=== PATIENT | male | born 1935 | race Two or more races ===

== ENCOUNTER 2022-09-24 16:05 | Inpatient (IN) | payer MEDICARE, OTHER ==
[~2022-09-24] VITALS: Ht 165.1 cm; Wt 56.7 kg
--- NOTE | 2022-09-24 16:25 | NUR ---
LEANA Ambulife from [facility] "feel SON not getting enough air Sats 90%Ra- O2 applied"
--- NOTE | 2022-09-24 16:35 | NUR ---
established iv line 20 g at right ac , infusing well
--- NOTE | 2022-09-24 16:35 | NUR ---
blood sample obtained
--- NOTE | 2022-09-24 16:35 | NUR ---
on 3 L/min o2 , satting 97%
[2022-09-24 16:44] LABS: BASOPHILS % (AUTO) 0.4 % (0.0-2.0); EOSINOPHILS % (AUTO) 2.2 % (0.0-6.0); HEMATOCRIT 45 % (39-51); HEMOGLOBIN 14.7 g/dL (13.5-17.5); LYMPHOCYTES # (AUTO) 1.4 K/uL (0.8-4.8); MEAN CORPUSCULAR HGB CONC 33 g/dl (31.0-36.0); MEAN CORPUSCULAR VOLUME 87 fL (80-96); MONOCYTES # (AUTO) 0.5 K/uL (0.1-1.30); MONOCYTES % (AUTO) 6.7 % (2.0-12.0); NEUTROPHILS # (AUTO) 5.5 K/uL (1.8-8.9); NEUTROPHILS % (AUTO) 72.7 % (43.0-81.0); PLATELET COUNT (AUTO) 219 K/uL (150-450); RED BLOOD CELL COUNT(AUTO) 5.15 MIL/uL (4.5-6.0); WHITE BLOOD COUNT (AUTO) 7.5 K/uL (4.3-11.0)
[2022-09-24 17:04] LABS: CALCIUM, SERUM 9.2 mg/dL (8.5-10.1); CARBON DIOXIDE 31 mmol/L (21-32); CHLORIDE 102 mmol/L (98-107); CREATININE 0.7 mg/dL (0.6-1.3); GLUCOSE 142 mg/dL (74-106); POTASSIUM 4.1 mmol/L (3.5-5.1); SODIUM SERUM 138 mmol/L (136-145); UREA NITROGEN, BLOOD 19 mg/dL (7-18)
[2022-09-24 17:16] LABS: ALANINE AMINOTRANSFERASE 17 U/L (12-78); ALBUMIN 3.8 g/dL (3.4-5.0); ALKALINE PHOSPHATASE 71 U/L (46-116); ASPARTATE AMINOTRANSFERASE 16 U/L (15-37); BILIRUBIN,DIRECT 0.1 mg/dL (0.0-0.2); BILIRUBIN,TOTAL 0.4 mg/dL (0.2-1.0)
[2022-09-24] MEDS ORDERED: BRIM5DRO3 EACHEYE (17:27)
[2022-09-24] MEDS ORDERED: MECL-159 PO (17:27)
[2022-09-24] MEDS ORDERED: SENN-18 PO (17:27)
[2022-09-24] MEDS ORDERED: FINA5TAB11 PO (17:27)
[2022-09-24] MEDS ORDERED: GUAI100S11 PO (17:27)
[2022-09-24] MEDS ORDERED: IPRA3AMP23 IH (17:27)
[2022-09-24] MEDS ORDERED: ROSU20TA2 PO (17:27)
[2022-09-24] MEDS ORDERED: INSU100V27 SQ (17:27)
[2022-09-24] MEDS ORDERED: CHOL400C8 PO (17:27)
[2022-09-24] MEDS ORDERED: GABA-532 PO (17:27)
[2022-09-24] MEDS ORDERED: LACT10SO3 PO (17:27)
[2022-09-24] MEDS ORDERED: POLY17PO4 PO (17:27)
[2022-09-24] MEDS ORDERED: METO25TA20 PO (17:27)
[2022-09-24] MEDS ORDERED: ACET-868 PO (17:27)
[2022-09-24] MEDS ORDERED: EMPA25TA PO (17:27)
[2022-09-24] MEDS ORDERED: METF-440 PO (17:27)
[2022-09-24] MEDS ORDERED: TAMS-12 PO (17:27)
[2022-09-24] MEDS ORDERED: PANT40TA2 PO (17:27)
[2022-09-24] MEDS ORDERED: DOCU-141 PO (17:27)
[2022-09-24] MEDS ORDERED: APIX2.5T PO (17:27)
--- NOTE | 2022-09-24 17:35 | NUR ---
covid swab taken
--- NOTE | 2022-09-24 19:12 | NUR ---
CALLED [facility] FOR ADMISSION
--- NOTE | 2022-09-24 21:25 | NUR ---
REPORT GIVEN TO ALIDA FOR ERICKSON
--- NOTE | 2022-09-24 21:56 | NUR ---
TRANSFERRED TO ROOM VIA ACLS PROTOCOL
[2022-09-24 22:00] VITALS: BP 112/44
[2022-09-24] MEDS ORDERED: Z GUARD REMEDY 4 OZ OINT TP PRN (23:30)
[2022-09-24] MEDS ORDERED: IV NS 0.9% 1,000 ML IV PRN (23:30)
[2022-09-24] MEDS ORDERED: ALBUTEROL FS 2.5 MG/0.5 ML VIAL.NEB NEB PRN (23:30)
[2022-09-24] MEDS ORDERED: ACETAMINOPHEN 325 MG TABLET PO PRN (23:30)
[2022-09-24] MEDS ORDERED: MAGNESIUM HYDROXIDE 30 ML UDC PO PRN (23:30)
[2022-09-24] MEDS ORDERED: DEXTROSE 50%-WATER 50 ML DISP.SYRIN IV PRN (23:30)
[2022-09-24] MEDS ORDERED: MAG HYDROX/AL HYDROX/SIMETH 30 ML UDC PO PRN (23:30)
[2022-09-24] MEDS ORDERED: *INSULIN REGULAR(HUMULIN R)HUM 100 UNIT/ML VIAL SQ PRN (23:30)
[2022-09-24] MEDS ORDERED: ONDANSETRON HCL/PF 4 MG/2 ML VIAL IVP PRN (23:30)
--- NOTE | 2022-09-24 23:30 | NUR ---
DRAFTER MARINESIDEHAND NOTE ADMITTED THIS 87 YO MALE PATIENT FROM ER VIA GURNEY. PATIENT IS AWAKE, ALERT AND ORIENTED X 1-2. WITH PERIODS OF CONFUSION. PALAUAN SPEAKING. USED Ezetap MACHINE FOR TRANSLATION. INITIAL VS TAKEN FOLLOWS: T 97.6, WY 74, RR 20, O2 SAT 93%, BP 112/44 MM HG. ON ROOM AIR; TOLERATING WELL. NOT IN ANY FORM OF RESPIRATORY OR CARDIAC DISTRESS NOTED AT THIS TIME. NO C/O PAIN OR DISCOMFORT. WHOLE BODY AND SKIN ASSESSMENT DONE: SKIN WARM TO TOUCH AND INTACT. WITH IV ACCESS ON RIGHT FOREARN 20g; PATENT, INTACT AND SALINE LOCKED. ON TELE METRY MONITORING; REFUSED TO BE ATTACHED ON TELE BOX. OLIVERIO MIRANDA RN MADE AWARE. ORIENTED TO STAFF, ROOM AND UNIT. SAFETY MEASURES IMPLEMENTED: CALL LIGHT AND TABLE WITHIN REACH, SIDE RAILS UP X 2, BED ALARM ON, BED IN LOWEST LOCKED POSITION. WILL CONTINUE TO MONITOR.
[2022-09-25] MEDS ORDERED: SENNOSIDES 8.6 MG TABLET PO PRN
[2022-09-25] MEDS ORDERED: ENOXAPARIN SODIUM 40 MG/0.4 ML DISP.SYRIN SQ SCH
[2022-09-25] MEDS ORDERED: ACETAMINOPHEN 325 MG TABLET PO PRN
[2022-09-25] MEDS ORDERED: LACTULOSE 10 G/15 ML UDC (PYXIS) PO PRN (00:30)
[2022-09-25] MEDS: methylPREDNISolone SOD SUCC 40 MG/ML VIAL IV SCH ×4 (00:59→21:21)
--- NOTE | 2022-09-25 01:08 | NUR ---
RN NOTE SOLU MEDROL 40 MG IV HELD; PATIENT REFUSED TO RECEIVE MEDICATION. EXPLAINED RISKS AND BENEFITS OF FOLLOWING REGIMEN; STILL PATIENT REFUSED TO RECEIVE IT.
--- NOTE | 2022-09-25 01:08 | NUR ---
RN NOTE IVF NS 1L @ 75 CC/HR AND LOVENOX 40 MG SQ HELD; PATIENT REFUSED TO RECEIVE MEDICATIONS. EXPLAINED RISKS AND BENEFITS OF FOLLOWING MEDICAL REGIMEN; STILL PATIENT REFUSED TO RECEIVE IT.
--- NOTE | 2022-09-25 07:26 | NUR ---
OIL RAG WASHER OPENING NOTES RECEIVED PT AWAKE IN BED IN NO ACUTE SIGNS OF DISTRESS. A/O X2-3. MALAGASY SPEAKING, DENIES PAIN OR ANY DISCOMFORTS AT THIS TIME. ON ROOM AIR, TOLERATING WELL, BREATHING EVEN AND UNLABORED. PT REFUSED TO PUT ON EXTERNAL OFFICE ASSISTANT DESPITE EXPLAINING RISKS AND BENEFITS. IV ACCESS ON RFA #20G INTACT, PATENT AND FLUSHES WELL, PT REFUSED IVF. COMPLIANCE PROFESSIONAL CAME TO DRAW AM LABS, BUT PT REFUSED. CALLED PT SON WEN TO INFORMED HIM THAT PT REFUSING BLOOD DRAW, HE STATED THAT HE WILL COME AT 1100 AND NOT TO DO ANYTHING UNTIL HE COMES. SAFETY MEASURES IN PLACE: BED IN LOWEST LOCKED POSITION, HOB ELEVATED, SIDE RAILS UP X2, CALL LIGHT AND TRAY TABLE WITHIN REACH. WILL CONTINUE TO MONITOR PT ACCORDINGLY.
[2022-09-25] MEDS: PANTOPRAZOLE 40 MG TABLET.DR PO SCH (07:28)
[2022-09-25] MEDS: BLOOD SUGAR DIAGNOSTIC 1 EACH STRIP VI SCH ×4 (07:30→21:21)
--- NOTE | 2022-09-25 07:30 | NUR ---
RN NOTE PATIENT REFUSED AM LABS TO BE TAKEN AND REFUSED TO HAVE BLOOD SUGAR CHECKED.
--- NOTE | 2022-09-25 07:40 | NUR ---
RN CLOSING NOTE PATIENT IN BED; AWAKE, A/O X 1. STABLE ON ROOM AIR. IN NO ACUTE DISTRESS. NO S/S OF PAIN OR DISCOMFORT AT THIS TIME. ALL NEEDS ATTENDED. KEPT COMFORTABLE IN BED. SAFETY MEASURES IN PLACE: BED ALARM ON, CALL LIGHT AND TABLE WITHIN REACH, SIDE RAILS UP X 2, BED IN LOWEST LOCKED POSITION. ENDORSED TO MORNING SHIFT FOR ERICKSON.
[2022-09-25 08:00] VITALS: BP 115/78
[2022-09-25] MEDS: DOCUSATE SODIUM 100 MG CAPSULE PO SCH ×2 (09:00→16:52)
[2022-09-25] MEDS: POLYETHYLENE GLYCOL 3350 17 GM POWD.PACK PO SCH (09:00)
[2022-09-25] MEDS: GABAPENTIN 300 MG CAPSULE PO SCH ×2 (09:46→16:53)
[2022-09-25] MEDS: METOPROLOL TARTRATE 50 MG TABLET PO SCH (09:47)
[2022-09-25] MEDS: FINASTERIDE (5 MG) 5 MG TABLET PO SCH (09:47)
[2022-09-25] MEDS: APIXABAN 2.5 MG TABLET PO SCH ×2 (09:48→21:21)
[2022-09-25 10:52] LABS: BASOPHILS % (AUTO) 0.5 % (0.0-2.0); EOSINOPHILS % (AUTO) 4.3 % (0.0-6.0); HEMATOCRIT 44 % (39-51); HEMOGLOBIN 14.2 g/dL (13.5-17.5); LYMPHOCYTES # (AUTO) 1.1 K/uL (0.8-4.8); LYMPHOCYTES % (AUTO) 15.9 % (20.0-44.0); MEAN CORPUSCULAR HGB CONC 33 g/dl (31.0-36.0); MEAN CORPUSCULAR VOLUME 88 fL (80-96); MONOCYTES # (AUTO) 0.5 K/uL (0.1-1.30); MONOCYTES % (AUTO) 6.8 % (2.0-12.0); NEUTROPHILS # (AUTO) 5.1 K/uL (1.8-8.9); NEUTROPHILS % (AUTO) 72.5 % (43.0-81.0); PLATELET COUNT (AUTO) 208 K/uL (150-450); RED BLOOD CELL COUNT(AUTO) 4.97 MIL/uL (4.5-6.0)
[2022-09-25 11:15] LABS: CALCIUM, SERUM 8.8 mg/dL (8.5-10.1); CREATININE 0.8 mg/dL (0.6-1.3); MAGNESIUM 1.8 mg/dL (1.8-2.4); PHOSPHORUS 3.4 mg/dL (2.5-4.9); POTASSIUM 3.7 mmol/L (3.5-5.1)
[2022-09-25 12:00] VITALS: BP 119/55
[2022-09-25] MEDS: INSULIN REGULAR, HUMAN 100 UNIT/ML 3 ML VIAL SQ PRN ×2 (12:04→17:22)
--- NOTE | 2022-09-25 12:50 | NUR ---
RN NOTES PATIENT PICKED UP VIA WHEELCHAIR BY INGE TRAN FOR CT OF HEAD WITHOUT CONTRAST.
[2022-09-25] MEDS: ALBUTEROL FS 2.5 MG/0.5 ML VIAL.NEB NEB SCH ×2 (13:30→20:24)
[2022-09-25] MEDS: IPRATROPIUM NEB FS 0.5 MG/2.5 ML AMPUL.NEB NEB SCH ×2 (13:30→20:24)
[2022-09-25 16:00] VITALS: BP 122/60
--- NOTE | 2022-09-25 16:17 | NUR ---
RN NOTES PATIENT REFUSED TO DO A VENOUS DUPLEX OF BLE AND HEART ECHO.
--- NOTE | 2022-09-25 17:10 | NUR ---
UNABLE TO PERFORM AN ECHOCARDIOGRAM AND LOWER EXTREMITY VENOUS EXAM PATIENT IS UNCOOPERATIVE AND DOES NOT WANT TO LIE DOWN IN BED. RNs KELLY AND LEONARDO INFORMED AND UTILITY OPERATOR NINO.
--- NOTE | 2022-09-25 18:46 | NUR ---
MEDICAL LANGUAGE SPECIALIST CLOSING NOTES PT IN BED AWAKE, A/O X2. RWANDAN SPEAKING ONLY. CONFUSED/FORGETFUL INTERMITTENTLY, REORIENTED AND REDIRECTED NEEDED. ON ROOM AIR, TOLERATING WELL, NO SOB NOTED DURING SHIFT. PT STILL REFUSING TELE-MONITOR TO BE PLACED. IV ACCESS RFA #20G INTACT, PATENT AND FLUSHES WELL, PT ALSO REFUSED IVF. ALL NEEDS AND CARE PROVIDED WELL. WELL. SAFETY MEASURES KEPT IN PLACE: BED IN LOWEST LOCKED POSITION, SIDE-RAILS UP X2, CALL LIGHT AND TRAY TABLE WITHIN REACH OF PT. WILL ENDORSE ERICKSON TO BELLSTAND ATTENDANT NURSE.
--- NOTE | 2022-09-25 19:31 | NUR ---
ROVING CAN TENDER OPENING NOTES PT IN BED ASLEEP IN BED, A/O X2. BOTSWANAN SPEAKING ONLY. CONFUSED/FORGETFUL INTERMITTENTLY, REORIENTED AND REDIRECTED NEEDED. ON ROOM AIR, TOLERATING WELL, NO SOB NOTED. PT STILL REFUSING TELE-MONITOR TO BE PLACED. IV ACCESS RFA #20G INTACT, PATENT AND FLUSHES WELL, PT ALSO REFUSED IVF. WELL. SAFETY MEASURES KEPT IN PLACE: BED IN LOWEST LOCKED POSITION, SIDE-RAILS UP X2, CALL LIGHT AND TRAY TABLE WITHIN REACH OF PT.
[2022-09-25 20:00] VITALS: BP 118/61
[2022-09-25] MEDS: TAMSULOSIN 0.4 MG CAP.SR.24H PO SCH (21:21)
[2022-09-26] VITALS: BP 128/65
[2022-09-26] MEDS: IPRATROPIUM NEB FS 0.5 MG/2.5 ML AMPUL.NEB NEB SCH ×4 (01:30→19:30)
[2022-09-26] MEDS: ALBUTEROL FS 2.5 MG/0.5 ML VIAL.NEB NEB SCH ×4 (01:30→19:30)
[2022-09-26] MEDS: methylPREDNISolone SOD SUCC 40 MG/ML VIAL IV SCH ×3 (04:17→21:08)
--- NOTE | 2022-09-26 04:45 | NUR ---
RN NOTE WHILE STAFF WAS TRYING TO CHECK VITAL SIGNS PT BECAME VERY AGITATED AND AGGRESSIVE SHAKING FIST IN STAFFS FACE AND STARTED YELLING. I WAS INFORMED AND WHEN TO THE ROOM TO ASSES THE SITUATION PT CONTINUED TO YELL AT STAFF AND SHAKE FIST AT STAFF. TRIED TO GIVE PT SPACE AND DEESCALATE SITUATION TOOK A FEW STEPS BACK PT WAS VERY AGGRESSIVE. PT GOT UP OFF THE BED AND APPROACHED ME YELLING AND PROCEEDED TO PULL BACK HIS FIST AND SWING AT MY FACE. PT LOST BALANCE AND FELL BACK ON THE FLOOR. PT WAS NOT SEEN TO HAVE HIS THIS HEAD ON THE FLOOR. ATTEMPTED TO HELP PT HE STARTED KICKING AND SCREAMING AT ANY STAFF MEMBER WHO APPROACHED HIM. RESPIRATORY THERAPIST AND MOLDING MACHINE OPERATOR HELPER PRESENT DURING INCIDENT. SECURITY WAS CALLED AND ALGERIAN SPEAKING NURSE WELL TO TRANSLATE. PT UNABLE TO ANSWER QUESTIONS OR BE REORIENTATED JUST KEEPS SAYING " THEY ALL ARE TRYING TO KILL ME GET OUT" PT VERY CONFUSED AND DISORIENTED UNABLE TO ANSWER QUESTIONS.SECURITY WAS ABLE TO CONVINCE PT TO ACCEPT ONE PERSON ASSIST ON TO THE BED. ONCE ON BED PT STARTED KICKING AND TRYING TO SWING AT STAFF AGAIN PT WAS PLACED ON BILATERAL SOFT WRIST RESTRAINTS FOR SAFETY. BODY ASSESSMENT WAS DONE PT DID NOT GRIMACE OR SHOW ANY S/S OF PAIN AT THIS TIME NO BRUISING, SWELLING OR OPEN SKIN NOTED.VITAL SIGNS TAKEN AND FOLLOWS SBP 128/86 HR 98 O2 SAT 96% PT WAS ASSESSED BY RESPIRATORY THERAPIST WELL. HALL MONITOR BRITT INFORMED OF INCIDENT AWAITING ANY FURTHER ORDERS.CHARGE NURSE AWARE. NURSING COVERING MACHINE OPERATOR HELPER AWARE. BED ALARM ON BILATERAL SIDE RAILS UP X2 FOR SAFETY HOB ELEVATED FOR ASPIRATION PRECAUTIONS. ALL NEEDS MET AT THIS TIME.
--- NOTE | 2022-09-26 06:12 | NUR ---
RN NOTE RECEIVED NEW ORDER FOR CT OF THE HEAD WO CONTRAST.
[2022-09-26] MEDS: BLOOD SUGAR DIAGNOSTIC 1 EACH STRIP VI SCH ×4 (06:45→21:43)
[2022-09-26] MEDS: INSULIN REGULAR, HUMAN 100 UNIT/ML 3 ML VIAL SQ PRN ×4 (06:49→21:58)
[2022-09-26 07:00] VITALS: BP_SYST 110; BP_SYST 53; BP_DIAS 110; BP_DIAS 53
--- NOTE | 2022-09-26 07:28 | NUR ---
TEST DRIVER OPENING NOTE RECEIVED PT AWAKE AND RESTING IN BED. PT IS A/O X2, CONFUSED. REORIENTED PT NEEDED. PT IS ON ROOM AIR, TOLERATING WELL. NO SOB NOTED. NOT IN ANY SIGN OF RESPIRATORY DISTRESS. PT REFUSED THE CARDIAC TELE MONITOR, EXPLAINED RISK AND BENEFITS, PT GOT AGITATED AND REFUSED. NO C/O CARDIAC DISTRESS NOTED VOICED OUT AT THIS TIME. IV ACCESS ON RFA G#20 WITH NS ORDER BUT PT REFUSED IV FLUIDS DESPITE OF EXPLAINING RISK AND BENEFITS. SAFETY MEASURES IN PLACE: BED IN LOWEST AND LOCKED POSITION, SIDE RAILS UP X2, AND CALL LIGHT WITHIN REACH. WILL CONTINUE TO MONITOR PT.
[2022-09-26] MEDS: PANTOPRAZOLE 40 MG TABLET.DR PO SCH (07:30)
--- NOTE | 2022-09-26 07:42 | NUR ---
rn note spoke to son Cristiano regarding pt witnessed fall per son " in the facility they give him something to calm down maybe you can ask the dr for something" suggested son speak to the pt to try to calm him down he said "no , if you cant help his send him back to the facility" informed son day shift nurse would update him with any changes to pt condition.
--- NOTE | 2022-09-26 08:10 | NUR ---
RN NOTE PT REFUSED HIS PROTONIX MEDICATION SCHEDULED AT 0730. EXPLAINED RISK AND BENEFITS, PT STILL REFUSED.
[2022-09-26] MEDS: DOCUSATE SODIUM 100 MG CAPSULE PO SCH ×3 (09:00→17:00)
[2022-09-26] MEDS: METOPROLOL TARTRATE 50 MG TABLET PO SCH (09:00)
[2022-09-26] MEDS: FINASTERIDE (5 MG) 5 MG TABLET PO SCH ×2 (09:00→09:36)
[2022-09-26] MEDS: APIXABAN 2.5 MG TABLET PO SCH ×3 (09:00→21:08)
[2022-09-26] MEDS: GABAPENTIN 300 MG CAPSULE PO SCH ×3 (09:00→17:00)
[2022-09-26] MEDS: POLYETHYLENE GLYCOL 3350 17 GM POWD.PACK PO SCH ×2 (09:00→09:36)
--- NOTE | 2022-09-26 09:42 | NUR ---
RN NOTE PT REFUSED ALL HIS MEDICATIONS SCHEDULED AT 0900. EXPLAINED RISK AND BENEFITS BUT PT STARTED TO GET AGGRESSIVE AND IRRITATED AND STILL REFUSED.
[2022-09-26 13:00] VITALS: BP 116/65
[2022-09-26] MEDS: LORAZEPAM INJ 2 MG/ML VIAL IV PRN (15:32)
--- NOTE | 2022-09-26 15:34 | NUR ---
RN NOTE PT NOTED WITH EPISODES OF AGITATION AND AGGRESSIVENESS TOWARDS STAFF. PT KEPT YELLING AND TRYING TO GET OUT OF BED WHILE BILATERAL SOFT WRIST RESTRAINTS IN PLACE. REMOVED THE SOFT WRIST RESTRAINTS BUT PT WAS STILL COMBATIVE TRIES TO PUNCH THE NURSES. BILATERAL SOFT WRIST RESTRAINTS WAS PLACED BACK ON THE PT AND CALMLY REORIENTED AND REDIRECTED PT BUT STILL INEFFECTIVE. ATIVAN 0.5MG IVP ADMINISTERED ORDERED Q6HR PRN FOR AGITATION. PARTIAL DOSE WASTED AND WAS WITNESSED BY MARGO GERBER. WILL MONITOR AND REASSESS PT.
[2022-09-26 16:47] VITALS: BP 111/52
--- NOTE | 2022-09-26 17:35 | NUR ---
RN NOTE PT REFUSED ALL HIS MEDICATIONS SCHEDULED AT 1700. EXPLAINED RISK AND BENEFITS BUT PT STARTED TO GET AGGRESSIVE AND IRRITATED AND STILL REFUSED.
--- NOTE | 2022-09-26 18:00 | NUR ---
RN NOTE RECEIVED A CALL FROM [facility] AND SPOKE WITH DOL REPORTING CRITICAL DUPLEX RESULT WITH PT POSITIVE DVT ON RIGHT SUPERFICIAL FEMORAL VEIN. CALLED DR. JUANA MCGREGOR AND MADE AWARE OF THE DUPLEX RESULT WITH NO NEW ORDER AT THIS TIME.
--- NOTE | 2022-09-26 19:00 | NUR ---
RN OPENING NOTES PT IS AWAKE, A/O X 2, NEPALESE SPEAKING, CONFUSED. PT ON RA, TOLERATING WELL, BREATHING EVEN AND UNLABORED @ THIS TIME. PT IV ACCESS ON RIGHT FOREARM #20G, INTACT, PATENT AND FLUSHES WELL, WITH NO S/SX OF INFILTRATION @ SITE NOTED. SAFETY MEASURES IN PLACE. BED PLACE IN ITS LOWEST AND LOCKED POSITION, SIDE RAILS UP X 4, BEDSIDE TABLE AND CALL LIGHT IS EASY REACH. BED ALARM IS ON. WILL CONTINUE TO MONITOR PATIENT ACCORDINGLY.
--- NOTE | 2022-09-26 19:34 | NUR ---
PROBATE JUDGE CLOSING NOTE PT AWAKE AND RESTING IN BED. PT IS A/O X2, CONFUSED. REORIENTED PT NEEDED. PT IS ON ROOM AIR, TOLERATING WELL. NO SOB NOTED. NOT IN ANY SIGN OF RESPIRATORY DISTRESS. PT STILL REFUSED THE CARDIAC TELE MONITOR, EXPLAINED RISK AND BENEFITS, PT GOT AGITATED AND REFUSED. NO C/O CARDIAC DISTRESS NOTED VOICED OUT AT THIS TIME. IV ACCESS ON RFA G#20 WITH NS ORDER BUT PT STILL REFUSED IV FLUIDS DESPITE OF EXPLAINING RISK AND BENEFITS. BILATERAL SOFT WRIST RESTRAINTS IN PLACE ORDERED. CIRCULATION IS GOOD WITH NO SKIN IMPAIRMENTS NOTED. ALL NEEDS ATTENDED. KEPT CLEAN AND COMFORTABLE AT ALL TIMES. SAFETY MEASURES IN PLACE: BED IN LOWEST AND LOCKED POSITION, SIDE RAILS UP X2, AND CALL LIGHT WITHIN REACH. ENDORSED TO ORCHARD WORKER NURSE FOR ERICKSON.
[2022-09-26 20:00] VITALS: BP 130/59
[2022-09-26 20:24] VITALS: BP 130/59
[2022-09-26] MEDS: TAMSULOSIN 0.4 MG CAP.SR.24H PO SCH (21:07)
[2022-09-27] MEDS: IPRATROPIUM NEB FS 0.5 MG/2.5 ML AMPUL.NEB NEB SCH ×3 (01:20→13:22)
[2022-09-27] MEDS: ALBUTEROL FS 2.5 MG/0.5 ML VIAL.NEB NEB SCH ×3 (01:20→13:23)
[2022-09-27] MEDS: methylPREDNISolone SOD SUCC 40 MG/ML VIAL IV SCH ×2 (04:22→12:19)
[2022-09-27] MEDS: BLOOD SUGAR DIAGNOSTIC 1 EACH STRIP VI SCH ×2 (06:50→11:41)
[2022-09-27 07:00] VITALS: BP 133/76
--- NOTE | 2022-09-27 07:29 | NUR ---
JUICE WEIGHER OPENING NOTE RECEIVED PT AWAKE AND RESTING IN BED. PT IS A/O X2, CONFUSED. REORIENTED PT NEEDED. PT IS ON ROOM AIR, TOLERATING WELL. NO SOB NOTED. NOT IN ANY SIGN OF RESPIRATORY DISTRESS. PT REFUSED THE CARDIAC TELE MONITOR, EXPLAINED RISK AND BENEFITS, PT STILL REFUSED. NO C/O CARDIAC DISTRESS NOTED VOICED OUT AT THIS TIME. IV ACCESS ON RFA G#20 WITH NS ORDER BUT PT REFUSED IV FLUIDS DESPITE OF EXPLAINING RISK AND BENEFITS. BILATERAL SOFT WRIST RESTRAINTS IN PLACE ORDERED. PT HAS GOOD CIRCULATION WITH NO SKIN IMPAIRMENTS NOTED. SAFETY MEASURES IN PLACE: BED IN LOWEST AND LOCKED POSITION, SIDE RAILS UP X2, BED ALARM ON, AND CALL LIGHT WITHIN REACH. WILL CONTINUE TO MONITOR PT.
--- NOTE | 2022-09-27 07:44 | NUR ---
RN CLOSING NOTES3 PT IS DOZING INTERMITTENTLY IN BED, [place]OREAN SPEAKING. NO S/SX OF RESPIRATORY DISTRESS NOTED. A/O X 2-3. IV SITE ON RFA #20G, INTACT, PATENT AND FLUSHES WELL WITH NO S/SX OF INFILTRATION. KEPT CLEAN, DRY AND COMFORTABLE. MEDICATIONS ADMINISTERED ACCORDINGLY PER MD'S ORDER. SAFETY MEASURES MAINTAINED. BEDS AT ITS LOWEST AND LOCKED POSITION. SIDE RAILS UP X 2. BEDSIDE TABLE AND CALL LIGHT IS EASY REACH, BED ALARM IS ON. WILL ENDORSE TO THE NEXT SHIFT FOR CONTINUITY OF CARE.
[2022-09-27] MEDS: PANTOPRAZOLE 40 MG TABLET.DR PO SCH (08:24)
[2022-09-27] MEDS: GABAPENTIN 300 MG CAPSULE PO SCH (08:25)
[2022-09-27] MEDS: FINASTERIDE (5 MG) 5 MG TABLET PO SCH (08:25)
[2022-09-27] MEDS: DOCUSATE SODIUM 100 MG CAPSULE PO SCH (08:25)
[2022-09-27] MEDS: POLYETHYLENE GLYCOL 3350 17 GM POWD.PACK PO SCH ×2 (08:25→09:00)
[2022-09-27 08:26] VITALS: BP 133/76
[2022-09-27] MEDS: APIXABAN 2.5 MG TABLET PO SCH (08:26)
[2022-09-27] MEDS: METOPROLOL TARTRATE 50 MG TABLET PO SCH (08:26)
--- NOTE | 2022-09-27 09:07 | NUR ---
RN NOTE PT REFUSED HIS MIRALAX MEDICATION SCHEDULED AT 0900. EXPLAINED RISK AND BENEFITS BUT PT STILL REFUSED.
--- NOTE | 2022-09-27 10:00 | NUR ---
RN NOTE CALLED [facility] AT [phone] TO GIVE REPORT IN REGARDS TO THE PT TRANSFERRING BACK TO THEIR FACILITY. CALLED SEVERAL TIMES BUT IT JUST KEPT RINGING AND UNABLE TO REACH THE FACILITY. WILL TRY TO CALL FACILITY AGAIN LATER.
[2022-09-27] MEDS: LORAZEPAM INJ 2 MG/ML VIAL IV PRN (10:42)
--- NOTE | 2022-09-27 10:44 | NUR ---
RN NOTE PT NOTED WITH EPISODES OF AGITATION AND AGGRESSIVENESS TOWARDS STAFF. PT KEPT YELLING AND TRYING TO GET OUT OF BED. PT WAS COMBATIVE WHEN STAFF TRYING TO CALM HIM DOWN. CALMLY REORIENTED AND REDIRECTED PT BUT STILL INEFFECTIVE. ATIVAN 0.5MG IVP ADMINISTERED ORDERED Q6HR PRN FOR AGITATION. PARTIAL DOSE WASTED AND WAS WITNESSED BY MARGO GERBER. WILL MONITOR AND REASSESS PT.
--- NOTE | 2022-09-27 11:00 | NUR ---
RN NOTE CALLED [facility] AT [phone] AGAIN TO GIVE REPORT IN REGARDS TO THE PT TRANSFERRING BACK TO THEIR FACILITY. CALLED SEVERAL TIMES AGAIN BUT IT JUST KEPT RINGING AND UNABLE TO REACH THE FACILITY. WILL TRY TO CALL FACILITY AGAIN LATER.
--- NOTE | 2022-09-27 11:25 | NUR ---
RN NOTE PT WAS SEEN BY DR. JUANA MCGREGOR WITH ORDERS TO DC BILATERAL SOFT WRIST RESTRAINTS AND MONITOR THE PT'S BEHAVIOR AT THIS TIME. ORDERS CARRIED OUT. Addendum: 09/27/22 at 1558 by EMILIA MORENO RN ADDENDUM BILATERAL SOFT WRIST RESTRAINTS REMOVED. PT HAS GOOD CIRCULATION WITH NO SKIN IMPAIRMENT NOTED. WILL CONTINUE TO MONITOR PT.
[2022-09-27] MEDS: INSULIN REGULAR, HUMAN 100 UNIT/ML 3 ML VIAL SQ PRN (11:44)
--- NOTE | 2022-09-27 12:00 | NUR ---
RN NOTE CALLED [facility] AT [phone] AGAIN TO GIVE REPORT IN REGARDS TO THE PT TRANSFERRING BACK TO THEIR FACILITY. CALLED SEVERAL TIMES AGAIN BUT IT JUST KEPT RINGING AND UNABLE TO REACH THE FACILITY. CALLED TRAIN CONDUCTOR AND SPOKE WITH RUBINA AND ASK IF THERE'S ANOTHER NUMBER TO REACH THE FACILITY. PER RUBINA SHE WILL TRY TO REACH THE FACILITY.
[2022-09-27] MEDS ORDERED: APIX5TAB PO (13:15)
[2022-09-27] MEDS ORDERED: APIX2.5T PO (13:15)
--- NOTE | 2022-09-27 13:50 | NUR ---
GLUING MACHINE ADJUSTER NOTE PT DISCHARGED TO [facility] IN STABLE CONDITION. PT IS A/O X2-3, CONFUSED. REORIENTED PT NEEDED. PT IS ON ROOM AIR, TOLERATING WELL WITH SPO2 AT 98%. NO SOB NOTED. NOT IN ANY SIGN OF RESPIRATORY DISTRESS. VITAL SIGNS TAKEN, STABLE, AND RECORDED. PT REFUSED BODY ASSESSMENTS AND PHOTOGRAPHS OF SKIN ISSUES. PT'S TELE YEAST MAKER WAS NOT ON THE PT DUE TO PT REFUSING TO HAVE IT ON AND TELE BOX WAS ALREADY WITH THE DISTANCE EDUCATION TEACHER. NO C/O CARDIAC DISTRESS VOICED OUT AT THIS TIME. ALL BELONGINGS ACCOUNTED FOR. DISCHARGED INSTRUCTIONS AND HEALTH TEACHINGS EXPLAINED TO THE PT AND REINFORCEMNET OF DISCHARGED INSTRUCTIONS AND HEALTH TEACHINGS NEEDED. IV ACCESS ON RFA G#20 REMOVED AND NO ACTIVE BLEEDING NOTED. DRY PRESSURE DRESSING APPLIED AT THE SITE. WRISTBAND REMOVED. WAS ABLE TO REACH AND REPORT GIVEN TO MARGO MACHADO OF [facility]. PT LEFT THE UNIT AT 1350 ACCOMPANIED BY 2 LIFESTYLE BLOCK FARMER VIA GURNEY. ALCARAZ AND CHARGED NURSE AWARE OF DISCHARGED.
[2022-09-27] MEDS ORDERED: APIXABAN 5 MG TABLET PO SCH (17:00)
[2022-09-27] MEDS ORDERED: APIXABAN 2.5 MG TABLET PO SCH (21:00)
[2022-10-04] MEDS ORDERED: APIXABAN 2.5 MG TABLET PO SCH (17:00)
== END 2022-09-27 13:45 | DRG 189 ==
LOC: ER 16:21 → TELE 21:08
PROVIDERS: ADMIT Internal Medicine; ATTEND Nurse Practitioner Family
DX: J96.21 Acute and chronic respiratory failure with hypoxia (principal); G93.41 Metabolic encephalopathy; J44.1 Chronic obstructive pulmonary disease with (acute) exacerbation; J98.11 Atelectasis; I82.411 Acute embolism and thrombosis of right femoral vein; Z86.16 Personal history of COVID-19; E11.9 Type 2 diabetes mellitus without complications; F43.10 Post-traumatic stress disorder, unspecified; I10 Essential (primary) hypertension; I25.10 Atherosclerotic heart disease of native coronary artery without angina pectoris; Z91.199 Patient's noncompliance with other medical treatment and regimen due to unspecified reason; Z79.01 Long term (current) use of anticoagulants; K21.9 Gastro-esophageal reflux disease without esophagitis; N40.0 Benign prostatic hyperplasia without lower urinary tract symptoms; F09 Unspecified mental disorder due to known physiological condition; F03.90 Unspecified dementia, unspecified severity, without behavioral disturbance, psychotic disturbance, mood disturbance, and anxiety; Z91.14 Patient's other noncompliance with medication regimen; Z20.822 Contact with and (suspected) exposure to COVID-19; Z79.4 Long term (current) use of insulin
CPT/HCPCS: 36415; 70450-TC; 71045-TC; 80048-TC; 80076-TC; 82962-TC; 83735-TC; 83880; 84100-TC; 84484-TC; 85025-TC; 85378-TC; 87081-TC; 93970-TC; 94799-TC; A4223; C9803; G0378; J1650; J1815; J2060; J2920; J7030

== ENCOUNTER 2023-11-20 22:56 | Emergency (ER) | payer MEDICARE, OTHER ==
[~2023-11-20] VITALS: Ht 175.3 cm; Wt 63.5 kg
[~2023-11-20 22:56] MED LIST: ACET-868 PO; APIX2.5T PO; APIX5TAB PO; BRIM5DRO3 EACHEYE; CHOL400C8 PO; DOCU-141 PO; EMPA25TA PO; FINA5TAB11 PO; GABA-532 PO; GUAI100S11 PO; INSU100V27 SQ; IPRA3AMP23 IH; LACT10SO3 PO; MECL-159 PO; METF-440 PO; METO25TA20 PO; PANT40TA2 PO; POLY17PO4 PO; ROSU20TA2 PO; SENN-18 PO; TAMS-12 PO
[2023-11-20 23:02] VITALS: TEMP 98.7
[2023-11-21 00:11] LABS: CALCIUM, SERUM 8.7 mg/dL (8.5-10.1); CARBON DIOXIDE 32 mmol/L (21-32); CHLORIDE 102 mmol/L (98-107); CREATININE 0.9 mg/dL (0.6-1.3); GLUCOSE 128 mg/dL (74-106); POTASSIUM 4.4 mmol/L (3.5-5.1); SODIUM SERUM 140 mmol/L (136-145); UREA NITROGEN, BLOOD 22 mg/dL (7-18)
[2023-11-21 00:27] LABS: ALANINE AMINOTRANSFERASE 13 U/L (12-78); ALKALINE PHOSPHATASE 65 U/L (46-116); ASPARTATE AMINOTRANSFERASE 20 U/L (15-37); BILIRUBIN,TOTAL 0.8 mg/dL (0.2-1.0); NT-PRO BNP 574 pg/mL (0-125); TOTAL PROTEIN, SERUM 6.9 g/dL (6.4-8.2)
[2023-11-21 00:30] LABS: BASOPHILS % (AUTO) 0.2 % (0.0-2.0); EOSINOPHILS % (AUTO) 0.3 % (0.0-6.0); HEMATOCRIT 40 % (39-51); HEMOGLOBIN 13.3 g/dL (13.5-17.5); LYMPHOCYTES # (AUTO) 1.4 K/uL (0.8-4.8); LYMPHOCYTES % (AUTO) 11.9 % (20.0-44.0); MEAN CORPUSCULAR HEMOGLOBIN 30 PG (26.0-33.0); MEAN CORPUSCULAR HGB CONC 33 g/dl (31.0-36.0); MEAN CORPUSCULAR VOLUME 89 fL (80-96); MONOCYTES # (AUTO) 0.7 K/uL (0.1-1.30); MONOCYTES % (AUTO) 6.3 % (2.0-12.0); NEUTROPHILS # (AUTO) 9.3 K/uL (1.8-8.9); NEUTROPHILS % (AUTO) 81.3 % (43.0-81.0); PLATELET COUNT (AUTO) 186 K/uL (150-450); RED BLOOD CELL COUNT(AUTO) 4.46 MIL/uL (4.5-6.0); RED CELL DISTRIBUTION WIDTH 16.2 % (11.5-15.0); WHITE BLOOD COUNT (AUTO) 11.4 K/uL (4.3-11.0)
[2023-11-21 00:58] LABS: LACTIC ACID 1.5 mmol/L (0.4-2.0)
[2023-11-21 01:07] LABS: APPEARANCE,URINE CLEAR (CLEAR); BILIRUBIN,URINE NEGATIVE (NEGATIVE); BLOOD, URINE 2+ Ery/uL (NEGATIVE); COLOR,URINE YELLOW (YELLOW); KETONES,URINE 1+ mg/dL (NEGATIVE); LEUKOCYTE ESTERASE ,URINE NEGATIVE (NEGATIVE); NITRITE, URINE NEGATIVE (NEGATIVE); PH,URINE 7.5 (5.0-8.0); PROTEIN,URINE TRACE mg/dl (NEGATIVE); UGLUCOSE 3+ mg/dL (NEGATIVE)
[2023-11-21] MEDS ORDERED: MORPHINE SULFATE INJ 2 MG/ML DISP.SYRIN ONE (01:22)
[2023-11-21] MEDS: MORPHINE SULFATE INJ 2 MG/ML DISP.SYRIN IV ONE (01:23)
[2023-11-21 02:23] VITALS: BP 122/82; O2SAT 98
[2023-11-21 02:40] LABS: ADD URINE CULTURE NO; BACTERIA,URINE 1+ /HPF (None Seen); WBC,URINE NONE SEEN /HPF (0-3)
[2023-11-22] MEDS ORDERED: DIVA125C2 PO (17:56)
[2023-11-22] MEDS ORDERED: MIRT-121 PO (17:56)
[2023-11-22] MEDS ORDERED: GLUC1KIT IM (17:56)
[2023-11-22] MEDS ORDERED: DEXT38GE12 PO (17:56)
[2023-11-22] MEDS ORDERED: ACET-637 PO (17:56)
[2023-11-22] MEDS ORDERED: MAGN400O6 PO (17:56)
[2023-11-22] MEDS ORDERED: MAG30ORA PO (17:56)
[2023-11-22] MEDS ORDERED: NA P133E RC (17:56)
[2023-11-22] MEDS ORDERED: APIX2.5T PO (17:56)
[2023-11-22] MEDS ORDERED: QUET25TA PO ×2 (17:56)
[2023-11-22] MEDS ORDERED: ATOR40TA PO (17:56)
== END 2023-11-21 02:43 | disposition home or self-care (01) ==
LOC: ER 23:06
DX: I11.0 Hypertensive heart disease with heart failure (principal); I50.9 Heart failure, unspecified; E11.9 Type 2 diabetes mellitus without complications; Z86.16 Personal history of COVID-19; Z79.4 Long term (current) use of insulin; Z79.84 Long term (current) use of oral hypoglycemic drugs; Z79.899 Other long term (current) drug therapy
CPT/HCPCS: 99285; 71045; 93005; 85025; 83605; 36415; 80053; 84484; 83880; 96374; 81001; J2270